=== PATIENT | female | born 1995 | race Caucasian/White ===

== ENCOUNTER 2019-01-21 12:12 | Emergency (ER) | payer OTHER ==
[2019-01-21 12:28] VITALS: BP 114/81; PULSE 65; TEMP 98.7; BMI 20.7
--- NOTE | 2019-01-21 12:48 | PDOC ---
History of Present Illness - General Chief Complaint: Constipation Stated Complaint: CONSTIPATION Time Seen by Provider: 01/21/19 12:34 History Source: Patient Exam Limitations: No Limitations - History of Present Illness Initial Comments: 01/21/19 12:48 23 yo F presenting to the ER with a complaint of constipation and anal pain. Pt has a h/o constipation, typically has a bowel movement every 3-4 days Pt was previously on a Miralax regimen but stopped this last summer Pt last bowel movement was 3 or 4 days ago. Pt attempted to have a bowel movement but was unable to do so. She began having anal pain which began yesterday. Pain is described as tightness, intermittent in nature and coming on with sitting or attempting to void. Pt rates pain 7/10. Denies having pain like this previously. Pt took a single Dulcolax tablet today but this had kiara effect Complains of some lower abdominal pressure pain. PMH: constipation PSH: denies Meds: OCPs ALL: NKDA Social: denies drugs, social ETOH FH: non contributory ROS: GENERAL/CONSTITUTIONAL: No: fever, chills, weakness, loss of appetite. HEAD, EYES, EARS, NOSE AND THROAT: No: change in vision, ear pain, discharge, sore throat, throat swelling. CARDIOVASCULAR: No: chest pain, lightheadedness, palpitations, syncope RESPIRATORY: No: cough, shortness of breath, wheezing, hemoptysis, stridor. GASTROINTESTINAL: Yes: anal pain, constipation No: nausea, vomiting . GENITOURINARY: No: dysuria, hematuria, frequency, urgency, flank pain. MUSCULOSKELETAL: No: back pain, neck pain, joint pain, muscle swelling or pain SKIN: No: lesions, pallor, rash or easy bruising. NEUROLOGIC: No: headache, vertigo, paresthesias, weakness ENDOCRINE: No: unexplained weight gain or loss HEMATOLOGIC/LYMPHATIC: No: anemia, easy bleeding, swelling nodes. PE: GENERAL: The patient is in no acute distress. HEAD: Normal EYES: PERRLA, EOMI, sclera anicteric, conjunctiva clear. ENT: Ears normal, nares patent, oropharynx clear without exudates. Moist mucous membranes. NECK: Normal range of motion, supple LUNGS: Breath sounds equal, clear to auscultation bilaterally. No wheezes, and no crackles. HEART:Regular rate and rhythm, normal S1 and S2 without murmur, rub or gallop. ABDOMEN: Soft, nontender RECTAL: no external hemorrhoids, pt screamed during examination Unable to disempact Hard stool palpated in the vault EXTREMITIES: Normal range of motion, no edema. NEUROLOGICAL: Cranial nerves II through XII grossly intact. Normal speech. No focal neurological deficits. MUSCULOSKELETAL: Back non-tender to palpation SKIN: Warm, Dry, normal turgor, no rashes or lesions noted. 01/21/19 14:57 Past History - Past Medical History Allergies/Adverse Reactions: Allergies Allergy/AdvReac Type Severity Reaction Status Date / Time No Known Allergies Allergy Unverified 01/21/19 12:15 Home Medications: Ambulatory Orders Hydrocortisone Acetate [Anusol Hc Suppository -] 25 mg RC DAILY PRN #14 supp.rect 01/21/19 Mineral Oil Enema [Fleet Mineral Oil Rectal Enema] 133 ml NR ONCE PRN 1 Days enema 01/21/19 Norethindrone-E.estradiol-Iron [Mibelas 24 Fe Chewable Tablet] 1 tab PO DAILY Polyethylene Glycol 3350 [Miralax (For Bowel Prep) -] 17 gm PO DAILY #1 bottle 01/21/19 Sodium Phosphate/Na Biphos [Fleet Adult Rectal Enema] 133 ml RC ONCE PRN #1 enema 01/21/19 COPD: No Other medical history: CONSTIPATION - Suicide/Smoking/Psychosocial Hx Smoking History: Never smoked Information on smoking cessation initiated: No Hx Alcohol Use: No Drug/Substance Use Hx: No *Physical Exam - Vital Signs Last Vital Signs Temp Pulse Resp BP Pulse Ox 98.7 F 65 17 114/81 100 01/21/19 12:14 01/21/19 12:14 01/21/19 12:14 01/21/19 12:14 01/21/19 12:14 Medical Decision Making - Medical Decision Making 01/21/19 14:50 Xray with fecal impaction Pt unable to tolerate disempaction, she cried immediately Will do enema until patient is able to have some bowel movement Will give Miralax 01/21/19 16:01 PT HAD BOWEL MOVEMENT Will discharge to home *DC/Admit/Observation/Transfer Diagnosis at time of Disposition: Fecal impaction in rectum Constipation Qualifiers: Constipation type: other constipation type Qualified Code(s): K59.09 - Other constipation - Discharge Dispostion Disposition: HOME Condition at time of disposition: Stable Decision to Admit order: No - Referrals Referrals: Jose Ballesteros [Primary Care Provider] - Iqra Calixto DO [Staff Physician] - - Patient Instructions Printed Discharge Instructions: DI for Constipation, Constipation (Alternative Therapy), Increased Dietary Fiber May Improve Constipation Conditions With Pelvic Prudencio Additional Instructions: Ms. Hurt Thank you for coming in to the ER Please review your results You should take Miralax daily until you are having regular bowel movements You can use Fleets enema if you feel that there is stool stuck that you are having a hard time getting out Please continue to drink a lot of fluids Please increase your dietary fiber intake Return to the emergency department immediately with ANY new, persistent or worsening symptoms. You should follow up with your primary doctor and a gastrointestinal specialist as soon as possible regarding today's emergency department visit. Please make sure your doctor reviews the results of your emergency evaluation. Thank you for coming to the [facility] today for your care. It was a pleasure to see you today. Please note that your evaluation is INCOMPLETE until you follow-up with your doctor. - Post Discharge Activity Forms/Work/School Notes: Back to Work
[2019-01-21] MEDS ORDERED: POLYETHYLENE GLYCOL 3350 119 GM BTL PO ONE (14:34)
== END 2019-01-21 16:12 | disposition home or self-care (01) ==
LOC: FER 12:12
DX: K56.41 Fecal impaction (principal); K59.09 Other constipation
CPT/HCPCS: 74019-TC-FY; 84703; 99282-25